=== PATIENT | female | born 1995 | race Caucasian/White ===

== ENCOUNTER 2020-07-13 17:16 | Emergency (ER) | payer SELFPAY ==
[~2020-07-13] VITALS: Ht 157.5 cm; Wt 68.0 kg
[2020-07-13] MEDS ORDERED: ACETAMINOPHEN 325MG TABLET PO ONE (17:45)
[2020-07-13 21:09] VITALS: BP 116/78
== END 2020-07-13 21:09 | disposition home or self-care (01) ==
LOC: ER 17:16
DX: S16.1XXA Strain of muscle, fascia and tendon at neck level, initial encounter (principal); Z88.0 Allergy status to penicillin; Z90.49 Acquired absence of other specified parts of digestive tract; V43.52XA Car driver injured in collision with other type car in traffic accident, initial encounter; Y93.89 Activity, other specified; Y92.488 Other paved roadways as the place of occurrence of the external cause
CPT/HCPCS: 99285